=== PATIENT | female | born 1990 | race Caucasian/White ===

== ENCOUNTER → 2016-07-31 | Outpatient (CLI) | payer OTHER ==
[~2016-07-31] MED LIST: COLACE 100MG C100 MG PO
== END ==
LOC: GENOP 10:46
DX: O99.89 Other specified diseases and conditions complicating pregnancy, childbirth and the puerperium (principal); R10.9 Unspecified abdominal pain; M54.9 Dorsalgia, unspecified; Z3A.22 22 weeks gestation of pregnancy
CPT/HCPCS: 81001; 82962; 87086; G0463

== ENCOUNTER 2016-09-05 20:40 | Outpatient (CLI) | payer OTHER | END 2016-09-05 22:50 | disposition home or self-care (01) | LOC: GENOP 20:40 | DX: O99.89 Other specified diseases and conditions complicating pregnancy, childbirth and the puerperium (principal); M54.9 Dorsalgia, unspecified; Z3A.27 27 weeks gestation of pregnancy | CPT/HCPCS: 59025; 81001; 82731; G0463 ==

== ENCOUNTER 2016-10-15 20:48 | Outpatient (CLI) | payer OTHER ==
[~2016-10-15] VITALS: Ht 160 cm; Wt 154.2 kg
[2016-10-15 22:12] LABS: HEMOGLOBIN 10.6 gm/dl (12.3-15.3); RED BLOOD COUNT 3.78 M/UL (4.00-5.10); WHITE BLOOD COUNT 8.2 K/UL (4.5-11.0)
[2016-10-15 22:28] LABS: BUN/CREATININE RATIO 20 (0-10)
== END 2016-10-16 03:39 | disposition short-term general hospital (02) ==
LOC: GENOP 20:48
PROVIDERS: Obstetrics & Gynecology
DX: O99.89 Other specified diseases and conditions complicating pregnancy, childbirth and the puerperium (principal); R10.30 Lower abdominal pain, unspecified; M54.5 Low back pain; R68.89 Other general symptoms and signs; O16.3 Unspecified maternal hypertension, third trimester; Z3A.33 33 weeks gestation of pregnancy; Z98.84 Bariatric surgery status
CPT/HCPCS: 36415; 80053; 81001; 82731; 82962; 85025; 87086; 96365; 96366; 96367; 96372; J0702; J3105; J3475; J7120

== ENCOUNTER 2016-11-01 23:15 | Outpatient (CLI) | payer OTHER | END 2016-11-02 05:41 | disposition home or self-care (01) | LOC: GENOP 23:15 | DX: O99.89 Other specified diseases and conditions complicating pregnancy, childbirth and the puerperium (principal); R10.9 Unspecified abdominal pain; Z3A.35 35 weeks gestation of pregnancy | CPT/HCPCS: 96372; J2300 ==

== ENCOUNTER 2016-11-10 16:16 | Inpatient (IN) | payer OTHER ==
[~2016-11-10] VITALS: Ht 160 cm; Wt 158.8 kg
[2016-11-10 17:22] LABS: HEMOGLOBIN 10.7 gm/dl (12.3-15.3); RED BLOOD COUNT 3.95 M/UL (4.00-5.10); WHITE BLOOD COUNT 9.1 K/UL (4.5-11.0)
[2016-11-11 04:23] LABS: HEMOGLOBIN 9.5 gm/dl (12.3-15.3)
[2016-11-12] MEDS ORDERED: COLACE 100MG C100 MG PO (10:03)
== END 2016-11-12 08:06 | disposition home or self-care (01) | DRG 765 ==
LOC: GENOP 16:16 → OB 20:16
PROVIDERS: Obstetrics & Gynecology; ADMIT Obstetrics & Gynecology
PROC: 10D00Z1 Extraction of Products of Conception, Low, Open Approach (ICD-10-PCS; principal; 2016-11-10 21:21)
PROC: 3E0234Z Introduction of Serum, Toxoid and Vaccine into Muscle, Percutaneous Approach (ICD-10-PCS; 2016-11-11)
DX: O60.14X0 Preterm labor third trimester with preterm delivery third trimester, not applicable or unspecified (principal); Z68.44 Body mass index [BMI] 60.0-69.9, adult; O10.92 Unspecified pre-existing hypertension complicating childbirth; Z37.0 Single live birth; Z3A.36 36 weeks gestation of pregnancy; G43.909 Migraine, unspecified, not intractable, without status migrainosus; O99.214 Obesity complicating childbirth; Z23 Encounter for immunization; O99.344 Other mental disorders complicating childbirth; Z98.84 Bariatric surgery status; Z79.899 Other long term (current) drug therapy; Z88.5 Allergy status to narcotic agent
CPT/HCPCS: 36415; 81001; 82248; 82565; 82800; 84450; 84460; 84550; 85014; 85018; 85025; 85379; 85384; 85610; 85730; 90707; 90715; C9113; J0690; J1200; J2274; J2405; J2590; J2765; J3010; J3430; J7120